=== PATIENT | female | born 1985 | race Caucasian/White ===

== ENCOUNTER → 2016-09-24 | Outpatient (CLI) | payer OTHER ==
[~2016-09-24] VITALS: Ht 160 cm; Wt 76.0 kg
[~2016-09-24] MED LIST: MOTRIN800 MG PO; PERCOCET 5/31 TABLET PO; PRENATAL TABLE1 EAC3 PO; Subutex SL
[2016-09-24 11:42] VITALS: BP 124/61
== END | disposition home or self-care (01) ==
LOC: IVINF 11:30
DX: O36.0930 Maternal care for other rhesus isoimmunization, third trimester, not applicable or unspecified (principal); Z3A.28 28 weeks gestation of pregnancy
CPT/HCPCS: 96372; J2790

== ENCOUNTER 2016-09-29 19:46 | Outpatient (CLI) | payer OTHER ==
[~2016-09-29 19:46] MED LIST changes: -MOTRIN800 MG PO; -PERCOCET 5/31 TABLET PO; -Subutex SL
[2016-09-29 20:15] VITALS: BP 105/64
[2016-09-29 21:41] LABS: AMPHETAMINES QUANT VALUE 0 NG/ML; BARBITUATES QUANT VALUE 0 NG/ML; BENZODIAZEPINES QUANT VALUE 0 NG/ML; BENZODIAZEPINES, URINE SCREEN Negative (200 ng/mL); MARIJUANA QUANT VALUE 0 NG/ML; OPIATES QUANTITATIVE VALUE 0 NG/ML; PHENCYCLIDINE QUANT VALUE 0 NG/ML
== END 2016-09-29 21:30 | disposition home or self-care (01) ==
LOC: LDRP-OP 19:46 → 2WEST 19:47
PROVIDERS: Advanced Practice Midwife
DX: O26.893 Other specified pregnancy related conditions, third trimester (principal); O30.003 Twin pregnancy, unspecified number of placenta and unspecified number of amniotic sacs, third trimester; Z3A.36 36 weeks gestation of pregnancy
CPT/HCPCS: 59025; 80306 90; G0378

== ENCOUNTER 2016-10-01 01:35 | Outpatient (CLI) | payer OTHER ==
[2016-10-01 02:08] VITALS: BP 113/67
== END 2016-10-01 03:05 | disposition home or self-care (01) ==
LOC: LDRP-OP 01:35 → 2WEST 01:36 → LDRP-OP 11-26 22:18
DX: O47.03 False labor before 37 completed weeks of gestation, third trimester (principal); O30.043 Twin pregnancy, dichorionic/diamniotic, third trimester; Z3A.36 36 weeks gestation of pregnancy
CPT/HCPCS: 59025; G0378

== ENCOUNTER 2016-10-04 02:10 | Outpatient (CLI) | payer OTHER ==
[2016-10-04 03:31] VITALS: BP 107/59
[2016-10-04 07:06] VITALS: BP 101/66
== END 2016-10-04 08:54 | disposition home or self-care (01) ==
LOC: LDRP-OP 02:10 → 2WEST 02:11 → LDRP-OP 11-26 03:22
DX: O47.03 False labor before 37 completed weeks of gestation, third trimester (principal); Z3A.36 36 weeks gestation of pregnancy; O30.043 Twin pregnancy, dichorionic/diamniotic, third trimester; O99.323 Drug use complicating pregnancy, third trimester; F11.20 Opioid dependence, uncomplicated; O99.313 Alcohol use complicating pregnancy, third trimester; F10.21 Alcohol dependence, in remission; Z87.891 Personal history of nicotine dependence
CPT/HCPCS: 59025; G0378; J7030; J7120

== ENCOUNTER 2016-10-06 06:24 | Inpatient (IN) | payer OTHER ==
[~2016-10-06] VITALS: Ht 160 cm; Wt 79.8 kg
[2016-10-06] VITALS (9 sets, daily range): BP systolic 109–152; BP diastolic 58–88
[2016-10-06] MEDS ORDERED: Subutex SL (07:07)
[2016-10-06] MEDS ORDERED: PERCOCET 5/31 TABLET PO (07:35)
[2016-10-06] MEDS ORDERED: MOTRIN800 MG PO (07:35)
[2016-10-06 09:50] LABS: AMPHETAMINES QUANT VALUE 0 NG/ML; BARBITUATES QUANT VALUE 0 NG/ML; BENZODIAZEPINES QUANT VALUE 0 NG/ML; BENZODIAZEPINES, URINE SCREEN Negative (200 ng/mL); MARIJUANA QUANT VALUE 0 NG/ML; OPIATES QUANTITATIVE VALUE 0 NG/ML; PHENCYCLIDINE QUANT VALUE 0 NG/ML
[2016-10-07 04:10] VITALS: BP 103/61
[2016-10-07 06:37] LABS: EOSINOPHIL (%) 0.7 % (0-5); EOSINOPHIL COUNT 0.1 K/uL (0-0.3); HEMATOCRIT 28.1 % (36.0-46.0); IMMATURE GRANULOCYTE (%) 0.5 % (0.0-0.7); IMMATURE GRANULOCYTE COUNT 0.1 K/uL; INSTRUMENT ABS NEUTROPHIL CT 6.5 K/uL; LYMPHOCYTE COUNT 3.5 K/uL (1.0-2.8); MCH 27.9 PG (29.0-34.0); MCHC 31.3 G/DL (30.0-36.0); MCV 89.2 FL (83-99); MEAN PLAT.VOLUME 10.9 uM^3 (9.5-12.4); MONOCYTE (%) 4.4 % (3-12); MONOCYTE COUNT 0.5 K/uL (0-0.8); NEUTROPHIL COUNT 6.5 K/uL (1.8-6.4); PLATELET COUNT 247 K/uL (156-360); RBC DIS.WIDTH-CV 15.1 % (11.8-14.6); RBC DIS.WIDTH-SD 47.8 % (39-53); RED BLOOD COUNT 3.15 M/uL (3.80-5.20); WHITE BLOOD COUNT 10.6 K/uL (4.1-10.2)
[2016-10-07 07:15] VITALS: BP 126/75
[2016-10-07 15:35] VITALS: BP 119/74
[2016-10-07 19:24] VITALS: BP 126/86
[2016-10-07 23:00] VITALS: BP 136/84
[2016-10-08 02:52] VITALS: BP 117/74
[2016-10-08 07:19] VITALS: BP 118/73
[2016-10-08 12:06] VITALS: BP 118/75
[2016-10-08 14:51] VITALS: BP 122/82
[2016-10-08 23:00] VITALS: BP 133/89
[2016-10-09 07:30] VITALS: BP 127/85
[2016-10-09 15:30] VITALS: BP 109/76
[2016-10-09 22:57] VITALS: BP 131/82
[2016-10-10 07:05] VITALS: BP 137/78
[2016-10-10] MEDS ORDERED: FERROUS SULFAT325 MG PO (12:23)
[2016-10-10 14:35] VITALS: BP 117/70
== END 2016-10-10 18:38 | disposition home or self-care (01) | DRG 765 ==
LOC: 2WEST 06:24 → 2SOUTH 11:14 → 2WEST 10-10 18:38
PROVIDERS: Obstetrics & Gynecology
PROC: 10D00Z1 Extraction of Products of Conception, Low, Open Approach (ICD-10-PCS; principal; 2016-10-06)
DX: O32.8XX1 Maternal care for other malpresentation of fetus, fetus 1 (principal); O36.8932 Maternal care for other specified fetal problems, third trimester, fetus 2; O30.043 Twin pregnancy, dichorionic/diamniotic, third trimester; O99.02 Anemia complicating childbirth; D62 Acute posthemorrhagic anemia; Z3A.37 37 weeks gestation of pregnancy; Z37.2 Twins, both liveborn; O99.324 Drug use complicating childbirth; F11.10 Opioid abuse, uncomplicated; Z87.891 Personal history of nicotine dependence
CPT/HCPCS: 36415; 59025; 80306 90; 83030; 85025; 86850; 86870; 86900; 86901; 86905; 86920; 86999; 88307; G0378; J1100; J1885; J2274; J2405; J2790; J3010; J7030; J7120